=== PATIENT | female | born 2000 | race African-American/Black ===

== ENCOUNTER 2019-05-06 19:35 | Emergency (ER) | payer OTHER ==
[~2019-05-06] VITALS: Ht 157.5 cm; Wt 72.6 kg
[2019-05-06 19:39] VITALS: BP 111/66
[2019-05-06] MEDS ORDERED: HUMIRA20 MG/0.2 SUBQ (19:45)
[2019-05-06] MEDS ORDERED: BUTALB-APAP-CA1 EACH PO (20:31)
== END 2019-05-06 20:42 | disposition home or self-care (01) ==
LOC: ER 19:35
DX: S09.90XA Unspecified injury of head, initial encounter (principal); V89.0XXA Person injured in unspecified motor-vehicle accident, nontraffic, initial encounter; Y93.I9 Activity, other involving external motion; Y92.410 Unspecified street and highway as the place of occurrence of the external cause; Y99.8 Other external cause status; Z88.8 Allergy status to other drugs, medicaments and biological substances